=== PATIENT | male | born 1970 | race Caucasian/White ===

== ENCOUNTER 2017-10-16 18:25 | Emergency (ER) | payer MEDICAID, SELFPAY ==
[2017-10-16 18:26] VITALS: BP 147/100; PULSE 84; RESP 16; TEMP 37.1; O2SAT 98; BMI 21.6
--- NOTE | 2017-10-16 18:57 | US_ITS ---
STUDY: ABDOMINAL ULTRASOUND - RIGHT UPPER QUADRANT REASON FOR VISIT: Male, 47 years old. Right upper quadrant pain TECHNIQUE: Ultrasound evaluation of the right upper quadrant was performed with real-time and static scott-scale imaging. TECHNICAL QUALITY: Adequate. COMPARISON: None. FINDINGS: Liver: The liver measures 16.3 cm. There is normal echogenicity of the liver. The bile ducts are within normal limits. There is hepatic color flow. The direction of portal flow is hepatopetal. There is no demonstrated mass lesion. Gallbladder: Normal distended gallbladder. The gallbladder wall measures 2 mm. There is a negative sonographic Nino's sign. There is no pericholecystic fluid. There are no gallstones. Common Bile Duct (C.B.D.): The common bile duct measures 2 mm. Pancreas: Normal size of the head, body and tail of the pancreas. There is normal echogenicity of the pancreas. There is no demonstrated pancreatic mass or cyst. Right Kidney: Normal size of the right kidney. The right kidney measures 11.8 cm. Normal renal cortex. The right cortex measures 1.8 cm. There is no demonstrated renal mass or cyst. There is no right hydronephrosis. US/Gallbladder IMPRESSION: Normal right upper quadrant ultrasound examination. Electronically Signed: Tong Rivera DO at 20:50 EDT Tel , Service support ,
--- NOTE | 2017-10-16 18:57 | ED.VISSUMM ---
- ER Visit Summary Date of Service: 10/16/17 Chief Complaint: Right upper quadrant abdominal pain History of Present Illness: The patient is a 47 M presenting with right upper quadrant abdominal pain. Patient states he has intermittent symptoms. He states he has had on and off pain for the past several years. He denies any change with eating. He states over the past day it has worsened. He has had subjective fever at home. He denies nausea or vomiting. He does have diarrhea. Denies urinary complaints. He has been seen by a surgeon in the past who offered to take his gallbladder out. He was told by the surgeon that he was unsure if this would resolve his pain. He decided not to have the surgery at that time. He took ibuprofen prior to arrival. Physical Examination: Vitals are stable. Patient is afebrile. Alert no acute distress. HEENT exam is unremarkable. Neck is supple. Lungs are clear and equal bilaterally. Heart is regular rate and rhythm. Abdomen is soft right upper quadrant tenderness with no rebound or guarding. Extremities are unremarkable. Skin is warm and dry. No focal neurologic deficit. Remainder of exam is unremarkable. Emergency Department Course and Treatment: Patient is given morphine, Zofran, IV fluids with improvement. CBC, chemistries unremarkable. Liver lipase are normal. Ultrasound of the right upper quadrant is normal. Patient is resting comfortably in the ED. He is given a prescription for Bentyl and Zofran. Advised to follow-up with Dr. Li and Dr. Rodríguez environmental epidemiologist for no doc. Advised return to ED for worsening complaints. Disposition: Discharge home Impression: Acute on chronic abdominal pain This note was generated with [employer] dictation software. It may contain incorrect words, spelling, and punctuation that were not noted in review of the chart prior to signing ED Disposition - Plan for ED Patient: Chief Complaint: Abd Pain Referrals: NOT,DEFINED [NON-STAFF] -
[2017-10-16] MEDS: 0.9% Normal Saline 1,000 ML 1000 ML IV (19:07)
[2017-10-16] MEDS: Morphine 4 MG/ML Syringe IV (19:07)
[2017-10-16] MEDS: Ondansetron 4 MG/2 ML Vial IV (19:07)
[2017-10-16 19:26] LABS: Absolute Lymphocyte Count 1.95 X10^3/ul (0.83-4.51); Absolute Neutrophil Count 2.8 X10^3/uL (2.0-7.7); Basophil# 0.02 X10^3/uL; Basophil% 0.4 % (0-1); Eosinophil# 0.16 X10^3/uL; Eosinophils% 2.8 % (0-5); Hematocrit 45.7 % (40-54); Hemoglobin 15.7 g/dl (13.0-16.5); Lymphocyte # 1.95 X10^3/ul (4.0); Lymphocyte % 34.7 % (19-41); Mean Corp Hgb Conc 34.4 g/gl (32-36); Mean Corpuscular Volume 84.5 fL (80-94); Mean Platelet Vol. 10.6 fl (6.2-12.0); Monocyte# 0.68 X10^3/uL; Monocyte% 12.1 % (0-10); Neutrophil # 2.81 X10^3/uL (2.7-7.7); POSITIVE COUNT NO; POSITIVE DIFFERENTIAL NO; POSITIVE MORPHOLOGY NO; Platelet Count 237 K/mm3 (150-450); RBC Distribution Width CV 13.4 % (11.6-14.6); RBC Distribution Width SD 41.1 fl (35.1-43.9); Red Blood Count 5.41 M/mm3 (4.6-6.2); White Blood Count 5.6 K/mm3 (4.4-11.0)
[2017-10-16 19:41] LABS: AST(SGOT) 14 U/L (15-37); Alanine Aminotransfer ALT/SGPT 17 U/L (16-61); Albumin, Serum 3.9 g/dL (3.2-5.0); Alkaline Phosphatase 81 U/L (45-117); Anion Gap 6 (5-15); BUN 16 mg/dL (7-18); BUN/Creat Ratio 14.5 RATIO (10-20); Bilirubin, Direct 0.08 mg/dL (0.00-0.30); Calcium,Total 8.6 mg/dL (8.5-10.1); Chloride 109 mmol/L (98-107); EST Glomerular Filtration Rate 77 mL/min (>60); Est Glom Filt Rate - Afr Amer 93 mL/min (>60); Estimated Creatinine Clearance 84.32 ml/min; Globulin 3.6 g/dL (2.2-4.2); Glucose 87 mg/dL (74-106); Lipase 298 U/L (73-393); Potassium 3.9 mmol/L (3.5-5.1); Protein, Total 7.5 g/dL (6.4-8.2); Sodium Level 142 mmol/L (136-145)
--- NOTE | 2017-10-16 21:08 | ED.DEP ---
ED Disposition - Plan for ED Patient: Chief Complaint: Abd Pain Instructions: ED Abdominal Pain Unkn Cause Prescriptions: Ondansetron [Zofran Odt] 4 mg PO Q8H PRN PRN #10 tablet PRN Reason: Nausea Dicyclomine HCl [Bentyl] 20 mg PO TIDAC #20 capsule Referrals: NOT,DEFINED [NON-STAFF] - Yariel Li MD [STAFF PHYSICIAN] - Alberto Rodríguez MD [STAFF PHYSICIAN] -
[2017-10-16 21:15] VITALS: BP 120/92; PULSE 67; RESP 16; O2SAT 96
== END 2017-10-16 21:15 | disposition home or self-care (01) ==
PROVIDERS: Emergency Provider Emergency Medicine
DX: G89.29 Other chronic pain (principal); R10.9 Unspecified abdominal pain; R19.7 Diarrhea, unspecified; Z72.0 Tobacco use
CPT/HCPCS: 76705; 80048; 80076; 83690; 85025; 96361; 96374; 96375; 99283; J2405

== ENCOUNTER 2019-03-14 08:16 | Emergency (ER) | payer MEDICAID, SELFPAY ==
[2019-03-14 08:17] VITALS: BP 148/97; PULSE 61; RESP 16; TEMP 36.1; O2SAT 100; BMI 23.0
--- NOTE | 2019-03-14 08:25 | ED.VISSUMM ---
- ER Visit Summary Date of Service: 03/14/19 Chief Complaint: Left-sided rib pain History of Present Illness: The patient is a 49 M who has pain on the ribs on the left side. Started 2 days ago. He denies any specific injury. His symptoms are worse with coughing and with breathing. He states that this is the third time this year he has had similar symptoms to this. He feels like he pulled something in his chest. The pain is sharp. He took nothing for this at home. Denies any fevers. Physical Examination: Vital signs reviewed. HEENT exam unremarkable. Heart is regular rate and rhythm without murmurs. Lungs are clear to auscultation. His chest is tender in the left fifth and sixth rib area. Abdomen is soft and nontender. Extremities reveal no edema. Peripheral pulses are equal. Skin exam normal. Neurologic exam normal. Test Results: Two-view chest x-ray per my interpretation along with the radiologist is chronic changes with hyperinflation. No bony changes Emergency Department Course and Treatment: Patient was treated with naproxen here and at home. This is either pleurisy or a chest wall strain. Both are treated with NSAIDs, ice and rest. We will follow-up with his PCP Treatment Plan: [] Disposition: Discharge Impression: Left chest wall pain This note was generated with [employer] dictation software. It may contain incorrect words, spelling, and punctuation that were not noted in review of the chart prior to signing ED Disposition - Plan for ED Patient: Referrals: NOT,DEFINED [Primary Care Provider] -
[2019-03-14] MEDS: Naproxen 500 MG Tablet PO (08:31)
--- NOTE | 2019-03-14 08:40 | RAD_ITS ---
STUDY: X-RAY CHEST REASON FOR EXAM: Male, 49 years old. Chest pain. TECHNIQUE: PA and lateral views of the chest. COMPARISON: None. FINDINGS: Hyperinflation. The lungs are clear. Scattered calcified granulomas. There is no demonstrated pleural abnormality. Normal size heart. Normal mediastinum and lesa. Normal visualized pulmonary arteries. Normal visualized aortic arch and descending thoracic aorta. Normal visualized thoracic spine. Normal visualized ribs, clavicles, and shoulders. Pectus excavatum deformity. There is no demonstrated abnormality of the visualized soft tissue structures of the upper abdomen. RAD/Chest PA and Lateral IMPRESSION: Hyperinflation. The lungs are clear. Electronically Signed: Bin Quinones, at 8:55 EDT , Service support ,
--- NOTE | 2019-03-14 09:01 | ED.DEP ---
ED Disposition - Plan for ED Patient: Disposition: Home or Assisted Living Instructions: Chest Wall Strain Prescriptions: Naproxen [Naprosyn] 500 mg PO BID PRN #20 tab Prescription Printed Referrals: NOT,DEFINED [Primary Care Provider] -
[2019-03-14 09:12] VITALS: RESP 16
== END 2019-03-14 09:12 | disposition home or self-care (01) ==
PROVIDERS: Emergency Provider Emergency Medicine
DX: R07.89 Other chest pain (principal); Z72.0 Tobacco use
CPT/HCPCS: 71046; 99283

== ENCOUNTER → 2022-03-23 | Outpatient (CLI) | payer MEDICAID, SELFPAY ==
--- NOTE | 2022-03-23 16:01 | RAD_ITS ---
STUDY: X-RAY CHEST REASON FOR EXAM: Male, 52 years old. POSITIVE TB TECHNIQUE: PA and lateral views of the chest. COMPARISON: Comparison is made with prior study 03/14/2019. FINDINGS: Pectus excavatum deformity. Hyperinflation. The lungs are clear. Calcified granulomas. There is no demonstrated pleural abnormality. Normal size heart. Normal mediastinum and lesa. Normal visualized pulmonary arteries. Normal visualized aortic arch and descending thoracic aorta. Normal visualized thoracic spine. Normal visualized ribs, clavicles, and shoulders. There is no demonstrated abnormality of the visualized soft tissue structures of the upper abdomen. RAD/Chest PA and Lateral IMPRESSION: Hyperinflation. The lungs are clear. No acute abnormality is seen. Electronically Signed: Bin Quinones MD at 13:37 EDT ,
== END | disposition home or self-care (01) ==
LOC: RAD 15:57
DX: R76.12 Nonspecific reaction to cell mediated immunity measurement of gamma interferon antigen response without active tuberculosis (principal)
CPT/HCPCS: 71046

== ENCOUNTER → 2022-06-13 | Outpatient (CLI) | payer MEDICAID, SELFPAY ==
--- NOTE | 2022-06-13 16:35 | PFTCOMP ---
COMPLETE PULMONARY FUNCTION TEST INTERPRETATION Brief HPI: Patient is a 52-year-old male, currently under the care of Alicia Baron, who presents to [facility] for complete pulmonary function tests secondary to diagnosis of dyspnea. Respiratory therapist reports good effort and reproducible results. Interpretation: Forced expiration spirometry shows no large airways obstructive ventilatory defect with an FEV1 of 84% predicted. There is no significant bronchodilator response by strict ATS criteria. Spirograms are of good quality and plateau slowly, indicating slowly emptying areas of the lungs. The respiratory flow volume loop shows decreased expiratory flow rates at high lung volumes consistent with small airways obstruction. Lung volumes by body plethysmography show a normal total lung capacity at 6.66 L, 94% predicted. All other lung volumes are within normal limits. Diffusion capacity by carbon monoxide is elevated at 140% predicted. The airway resistance is slightly elevated. No previous pulmonary function tests were available for review. Impression: Grossly normal pulmonary function test. Consider bronchoprovocation study if asthma is suspected
== END | disposition home or self-care (01) ==
LOC: PSN 09:53
DX: R06.02 Shortness of breath (principal)
CPT/HCPCS: 94060; 94726; 94729

== ENCOUNTER → 2022-06-17 | Outpatient (CLI) | payer MEDICAID, SELFPAY ==
--- NOTE | 2022-06-17 09:28 | CT_ITS ---
EXAM: CT CHEST WITHOUT INTRAVENOUS CONTRAST CLINICAL INDICATION: LUNG NODULE TECHNIQUE: Helically acquired images were obtained of the chest without intravenous contrast. This CT exam was performed using one or more of the following dose reduction techniques: automated exposure control, adjustment of the mA and/or kV according to patient size, and/or use of iterative reconstruction technique. This report was created using [employer] report generation technology. RADIATION DOSE: CTDIvol = 11.33 mGy, DLP = 435.92 mGy-cm COMPARISON: CT abdomen and pelvis without contrast 02/03/2017. No prior CT chest for comparison. FINDINGS: LUNGS AND PLEURAL SPACES: Calcified granuloma in the anterior aspect of both lower lobes. No suspicious pulmonary nodules or infiltrates. Minimal subpleural atelectasis in the right anterior lung base. No pneumothorax. HEART: Unremarkable. Heart size is normal. No pericardial effusion. No significant coronary artery calcifications. MEDIASTINUM: Unremarkable. No mediastinal or hilar adenopathy. Esophagus is unremarkable. No hiatal hernia. THYROID: Unremarkable. No thyroid lesions. BONES/JOINTS: Unremarkable. No suspicious lytic or blastic abnormality. VASCULATURE: Unremarkable. Thoracic aorta is non-dilated. CT/Chest without Contrast IMPRESSION: 1. No acute findings in the chest. 2. No CT evidence of pulmonary nodule. 3. Subpleural atelectasis in the right anterior lung base. Electronically Signed: Alex Bruner MD at 10:11 [facility] ,
== END | disposition home or self-care (01) ==
LOC: CT 09:26
DX: R91.1 Solitary pulmonary nodule (principal)
CPT/HCPCS: 71250

== ENCOUNTER 2022-08-21 17:51 | Emergency (ER) | payer MEDICAID, SELFPAY ==
[2022-08-21 17:53] VITALS: BP 150/100; PULSE 80; RESP 14; TEMP 36.1; O2SAT 96; BMI 24.9
--- NOTE | 2022-08-21 17:58 | ED.RN ---
SPOKE WITH DR HOLDER ABOUT PT SX, NO ORDERS GIVEN D/T SX STARTING IN MAR.
--- NOTE | 2022-08-21 20:16 | CT_ITS ---
INDICATION: Blurred vision of left eye EXAMINATION: CT BRAIN WITH CONTRAST TECHNIQUE: Noncontrast axial images were obtained of the brain. Subsequently, routine carotid CT angiogram protocol was performed without and with IV contrast. In addition, images were obtained of the [place]. NASCET criteria using the distal ICAs for comparison were used for evaluation of stenoses. 3D reconstructions were reviewed. A radiation dose optimization technique was used for this scan. IV Contrast dosage and agent: 100 cc [id number]-[id number] COMPARISON: None. FINDINGS: --CT BRAIN: BRAIN PARENCHYMA: No intra- or extra-axial hemorrhage. No evidence of acute infarct. No intracranial mass or mass effect. There is preservation of the scott/white matter interface. Posterior fossa structures are unremarkable. CSF SPACES: Appropriate for age. No hydrocephalus. Basal cisterns are patent. CALVARIUM, SKULL BASE, PARANASAL SINUSES AND MASTOID AIR CELLS: Clear. No discrete lytic or blastic abnormalities. ASPECTS Score for Acute Strokes: 10 --CTA NECK: AORTIC ARCH AND BRANCHES: Common origin of the innominate and left common carotid arteries. RIGHT CCA: No occlusion, significant stenosis or dissection. RIGHT ICA: No occlusion, significant stenosis or dissection. LEFT CCA: No occlusion, significant stenosis or dissection. LEFT ICA: No occlusion, significant stenosis or dissection. RIGHT VERTEBRAL ARTERY: No occlusion, significant stenosis or dissection. LEFT VERTEBRAL ARTERY: No occlusion, significant stenosis or dissection. NECK SOFT TISSUES: Unremarkable. --CTA HEAD: --Anterior circulation: ICAs: No significant stenosis at the intracranial/visualized segments. ACAs: No significant stenosis at the visualized segments. ACOM: Present. MCAs: No significant stenosis at the visualized segments. --Posterior circulation: PCOMs: Present on the left, not definitely seen on the right. sales broker: No significant stenosis at the visualized segments. BASILAR ARTERY: No significant stenosis. VERTEBRAL ARTERIES: No significant stenosis at the intradural/visualized segments. No evidence of intracranial aneurysm or vascular malformation. CT/CTA Head AND Neck W/ Contrast IMPRESSION: Negative CT Brain, CTA Carotid, and CTA Brain. Electronically Signed: Alberto Chanel MD at 21:30 EST ,
--- NOTE | 2022-08-21 20:18 | EX.ED.VIS.EY ---
HPI History of Present Illness Chief Complaint: Eye Problem Narrative Narrative: 52-year-old male past medical history of schizophrenia and hepatitis C states he has been having neurological type symptoms with left-sided facial numbness since March of last year, almost 6 months ago. He states he was seen at [facility] and they thought that given his left facial numbness that he was having problems with his heart so they performed a heart catheterization. He was told approximately a month ago at [facility] that he has degenerative problems with his neck, and that part of his numbness may be from cervical radiculopathy/disc disease. He presents to the emergency department today because of blurry vision in his left eye. Its not as if lampshade came down and that he has loss of vision but he states it is like it shaded with a filter over it. He denies any headache. No chest pain or shortness of breath. States he is scheduled for an MRI of his neck next week, but today he noticed this blurry vision out of his left eye that is accompanying his facial numbness. He thinks his left face is also swollen. PFSH PFS Home Medications naproxen 500 mg tablet 500 mg PO BID PRN #20 tabs 03/14/19 [Rx Last Taken Unknown] Allergy/AdvReac Type Severity Reaction Status Date / Time tramadol AdvReac Vomiting Verified 03/14/19 08:17 Social History Smoking Status: Current every day smoker tobacco type: cigarettes ROS ROS ED ROS Narrative Constitutional: No fever, no chills. HEENT: No sore throat. No neck pain. No loss of vision. No rhinorrhea. Blurred vision out of left eye only. States it is like a filter over it, but can still see. Cardiovascular: No chest pain. No palpitations. No pedal edema. Respiratory: No cough, no shortness of breath. Abdominal: No abdominal pain. No nausea. No vomiting. Genitourinary: No dysuria. No hematuria. Musculoskeletal: No myalgias. No arthralgias. Neurologic: No headaches. No dizziness. No lightheadedness. Skin: No rash. No change in color. Psychiatric: No depression. No anxiety. EXAM Physical Exam Narrative Exam Narrative: Afebrile. Vital signs noted. HEENT: Normocephalic. Atraumatic. PERRL, EOMI. Neck soft and supple. No point tenderness or step off. Cardiovascular: Regular rate and rhythm. No murmurs, rubs, or gallops appreciated. Respiratory: No tachypnea. Lungs clear to auscultation bilaterally. Gastrointestinal: Abdomen soft, nontender, with normoactive bowel sounds. No rebound or guarding. Neurological: Awake. Alert. Nonfocal, nonlateralizing. Skin: No rash. Normal color. No pallor. Musculoskeletal: No pedal edema. Full range of motion extremities. Const Vital Signs: 08/21/22 17:53 Temperature 97 F L Temperature Source Temporal Pulse Rate 80 Respiratory Rate 14 Blood Pressure 150/100 H Blood Pressure Mean 116 Pulse Ox 96 Oxygen Delivery Method Room Air MDM MDM MDM Narrative Medical decision making narrative: His symptoms neurologically have been ongoing for almost 6 months. What he is describing is not a lampshade effect or curtain lowering type symptom consistent with amaurosis fugax. Visual acuity will be obtained. He was told that MRI is unavailable at this facility at this hour, I do not feel that he needs an emergent MRI of his brain as he has had the symptoms ongoing for quite some time. Instead, I will obtain a CTA of the head and neck. CBC and BMP were also obtained. He was bolused normal saline 1 L intravenously. I reviewed the patient's laboratory work. CBC is grossly unremarkable with a normal white count, normal hemoglobin. BMP is grossly unremarkable without electrolyte abnormality disturbance. I reviewed the CT a of the head neck, and did not appreciate any hemorrhage or obvious occlusion. I reviewed the radiology report which is negative for any obstruction, normal CTA of the head and neck. At this point in time, he is able to see out of his left eye and there is no appreciable facial swelling. Additionally he is able to finger count, he states he is still able to see but it is as if someone put a filter over his left eye field of vision. He has normal confrontation and no evidence of hemianopsia. At this point in time, I discussed the patient with Dr. Encinas with ophthalmology. It was agreed that he could follow-up as an outpatient in the clinic for further testing. I feel he can be discharged safely home with follow-up. Return instructions to the emergency department were reviewed. Disposition is discharged home in stable condition. Lab Data Attestation: I reviewed the patient's lab results. Discharge Plan Triage Chief Complaint: Eye Problem ED Provider: Alex Hoffman Dx/Rx/DC Orders Clinical Impression: Blurred vision, left eye, Visual disturbance Instructions: ED Blurred Vision Prescriptions: No Action naproxen 500 MG tablet 500 mg PO BID PRN Qty: 20 0RF Primary Care Provider: Michelle Christina NP Referrals: ADWOA HUTCHINSON [Other] Daria Encinas MD [Med Staff - Active Staff] - 3-5 Days Activity Restrictions/Additional Instructions: Follow-up with Dr. Encinas in the eye clinic over the next few days. Return with loss of vision, new or worsening symptoms. Disposition Disposition: Home, Self Care
[2022-08-21 20:36] LABS: Absolute Lymphocyte Count 2.48 X10^3/uL (0.83-4.51); Absolute Neutrophil Count 5.2 X10^3/uL (2.0-7.7); Basophil# 0.05 X10^3/uL; Basophil% 0.6 % (0-1); Eosinophil# 0.12 X10^3/uL; Eosinophils% 1.4 % (0-5); Hemoglobin 14.9 g/dL (13.0-16.5); Lymphocyte # 2.48 X10^3/ul (0.83-4.51); Lymphocyte % 29.1 % (19-41); Mean Corp Hgb Conc 33.1 g/dL (32-36); Mean Corpuscular Hgb 28.3 pg (27.0-32.0); Mean Corpuscular Volume 85.4 fL (80-94); Mean Platelet Vol. 9.6 fl (6.2-12.0); NRBC Flagged by Analyzer 0 % (0-5); Neutrophil # 5.22 X10^3/uL (2.7-7.7); Neutrophil % 61.2 % (47-70); Platelet Count 297 K/mm3 (150-450); RBC Distribution Width CV 12.4 % (11.6-14.6); RBC Distribution Width SD 38.5 fl (35.1-43.9); Red Blood Count 5.27 M/mm3 (4.6-6.2); White Blood Count 8.5 K/mm3 (4.4-11.0)
[2022-08-21] MEDS: 0.9% Normal Saline 1,000 ML 999 ML IV (20:37)
[2022-08-21 20:50] LABS: Anion Gap 7 (5-15); BUN 17 mg/dL (7-18); BUN/Creat Ratio 14.5 RATIO (10-20); Calcium,Total 9.4 mg/dL (8.5-10.1); Chloride 107 mmol/L (98-107); Creatinine, Serum 1.17 mg/dL (0.70-1.30); EST Glomerular Filtration Rate 70 mL/min (>60); Est Glom Filt Rate - Afr Amer 85 mL/min (>60); Estimated Creatinine Clearance 77.99 ml/min; Glucose 104 mg/dL (74-106); Potassium 3.7 mmol/L (3.5-5.1); Sodium Level 141 mmol/L (136-145)
[2022-08-21 21:55] VITALS: BP 135/95; PULSE 74; RESP 13; O2SAT 99
== END 2022-08-21 21:58 | disposition home or self-care (01) ==
PROVIDERS: Emergency Provider Emergency Medicine; PCP Internal Medicine; Visit Provider Emergency Medicine
DX: H53.8 Other visual disturbances (principal); R20.0 Anesthesia of skin; F17.210 Nicotine dependence, cigarettes, uncomplicated; Z86.19 Personal history of other infectious and parasitic diseases
CPT/HCPCS: 70496; 70498; 80048; 85025; 99285; J7030; Q9967; A4216

== ENCOUNTER 2022-11-29 08:25 | Emergency (ER) | payer MEDICAID, SELFPAY ==
[2022-11-29 08:27] VITALS: BP 144/84; PULSE 78; RESP 18; TEMP 36.3; O2SAT 99; BMI 24.8
--- NOTE | 2022-11-29 08:59 | RAD_ITS ---
INDICATION: shoulder EXAMINATION/TECHNIQUE: X-RAY - LEFT XR Shoulder Min 2 Views 4 VIEWS COMPARISON: CT of the chest dated June 17, 2022 FINDINGS: SOFT TISSUES: No soft tissue swelling or gas. No radiopaque foreign body. BONES/JOINTS: No acute fracture or subluxation.. Normal alignment. There are degenerative changes of the acromioclavicular joint. There are mild degenerative changes of the glenohumeral joint as well. There is a stable left fifth rib deformity consistent with an old fracture. No sclerotic or destructive changes observed. RAD/Shoulder min 2 Views IMPRESSION: Degenerative changes. Electronically Signed: Karen Vaca MD at 9:13 EDT ,
--- NOTE | 2022-11-29 08:59 | EX.ED.UPPERE ---
HPI History of Present Illness HPI Narrative: Left shoulder pain after lifting and moving a heavy ladder. 2-day history. No fall or trauma. [id number]. No prior surgery or history to the left shoulder or arm. Chief Complaint: Upper Extremity Injury Informant: patient Occured/Mechanism Mechanism/Context: Yes injury Onset/Context/Timing Onset: Days Context: Gradual Onset Timing: Continuous Quality of Pain: Dull and Aching Current Severity: Mild Maximum Severity: Mild Associated Symptoms Associated Symptoms: Negative for Parasthesia, Weakness or Loss of Funtion Narrative Narrative: 52-year-old male [id number] was moving 20 foot ladder 2 days ago and since that time has had pain in his left shoulder. No fall injury or trauma. Hurts more with specific movements. Has full range of motion. No prior history of surgery. Prior similar symptoms: No Recent Illness/Hospitalization: No PFSH PFSH Home Medications naproxen 500 mg tablet 500 mg PO BID PRN #20 tabs 03/14/19 [Rx Last Taken Unknown] Allergy/AdvReac Type Severity Reaction Status Date / Time tramadol AdvReac Vomiting Verified 11/29/22 08:25 Social History Smoking Status: Current every day smoker tobacco type: cigarettes ROS ROS ED ROS Narrative Denies recent illness. Review of Systems ROS Unobtainable: Denies due to encephalopathy Constitutional Constitutional ED: Denies chills or fever(s) Eyes Eyes: Denies blurry vision ENT ENT ED: Denies ear pain Cardiovascular Cardiovascular: Denies chest pain Respiratory/Chest Respiratory/Chest: Denies cough Gastrointestinal Gastrointestinal: Denies abdominal pain Genitourinary Genitourinary ED: Denies dysuria Musculoskeletal Musculoskeletal: Denies back pain Integumentary Denies abscess Neurologic Neurologic: Denies headache(s) Psychiatric Psychiatric: Denies anxiety Endocrine Endocrinology: Denies cold intolerance Hematologic/Lymphatic Hematologic/Lymphatic: Denies easy bleeding Allergic/Immunologic Allergic/Immunologic ED: Denies mouth swelling or tongue swelling EXAM Physical Exam Narrative Exam Narrative: 52-year-old male vital signs are stable afebrile. No distress. Exam normal except left shoulder has full range of motion. Some discomfort with ABD duction. No redness or warmth. No axillary lymphadenopathy. The only place that is palpable tenderness is along the anterior top of his shoulder by the AC joint. No bony deformity. No swelling. He has full flexion extension AB and adduction. Internal and external rotation. He does have some discomfort with abduction. Const Vital Signs: 11/29/22 08:27 Temperature 97.4 F L Temperature Source Temporal Pulse Rate 78 Respiratory Rate 18 Blood Pressure 144/84 H Blood Pressure Mean 104 Pulse Ox 99 Oxygen Delivery Method Room Air Positive well nourished and well developed; Negative for obese, cachectic, contractures or unkempt General Appearance ED: well developed and NAD; Negative for unkempt, cachectic, contractures, cyanotic or diaphoretic Nutritional Appearance: Negative for cachectic or obese HEENT Reports moist mucous membranes normocephalic and atraumatic; Negative for trauma or tenderness Eyes PERRL and EOMs intact bilaterally General Eye ED: Negative for other Neck full ROM and supple General: Negative for tenderness Lymph Lymphatic: Negative for other Chest Wall inspection of chest normal and palpation of chest normal Chest: Negative for other Resp normal respiratory effort and clear to auscultation bilaterally Effort and Inspection: Negative for pain with movement Auscultation: Negative for rales, rhonchi or wheezes Cardio regular rate, regular rhythm, S1 normal heart sound, S2 normal heart sound and no murmurs Rate: Negative for bradycardia or tachycardic Rhythm: Negative for abnormal rhythm GI non-tender, non-distended and no masses Inspection: Negative for abdominal distention Auscultation: normoactive bowel sounds Palpation: soft; Negative for tender or guarding Back/Spine no CVA tenderness General Back: Negative for CVA tenderness Cervical Spine: Negative for cervical spine tenderness Thoracic Spine / Upper Back: Negative for thoracic spinal tenderness Lumbar Spine / Lower Back: Negative for lumbar spinal tenderness Extremity normal to inspection and full ROM Extremity Narrative: Mild tenderness top of left shoulder. Full range of motion. No swelling or deformity. No redness or warmth. No axillary lymphadenopathy. Left hand neurovascular intact. Normal pulse. 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 Normal exam of left upper extremity Mild tenderness and pain with certain areas of range of motion. Good rotator cuff strength. General Extremety ED: Negative for edema General Extremity: Negative for edema Neuro oriented x3, CN's II-XII intact bilaterally, moves all extremities, no focal motor deficits and no sensory deficits noted Sensorium / Orientation: alert, oriented to person, oriented to place and oriented to time; Negative for orientation impaired, lethargic or stuporous Motor Exam: strength 5/5 throughout Psych mental status grossly normal Appearance: Negative for unkempt Attitude: No agitated Mood & Affect: Negative for depressed, anxious or tearful Skin General Skin Exam: Negative for petechiae Lesions: no lesions Rashes: no rashes Trauma: no lacerations or abrasions MDM MDM MDM Narrative Medical decision making narrative: 52-year-old male left shoulder discomfort with certain aspects of range of motion primarily abduction. He has full range of motion. No bony deformity. I suspect this is a shoulder strain. X-rays are being obtained. Patient doing well at 9:25 AM. He will be discharged. We discussed home-going instructions of ice, anti-inflammatories and rest. Follow-up if not improving in 1 to 2 weeks. History & Record Review Discussion w/independent historian: Patient and Family Radiography Diagnostic Testing: Left shoulder x-ray showed no acute abnormality. No fracture. No dislocation. I discussed the x-rays with patient and his . Also limitations of plain films. I did interpret the films myself. Discharge Plan Triage Chief Complaint: Upper Extremity Injury ED Provider: Rory Ribeiro Dx/Rx/DC Orders Clinical Impression: Left shoulder strain Instructions: ED Shoulder Sprain Prescriptions: No Action naproxen 500 MG tablet 500 mg PO BID PRN Qty: 20 0RF Primary Care Provider: Michelle Christina NP Referrals: Michelle Christina NP, [facility] [Primary Care Provider] - 10-14 Days suture removal Activity Restrictions/Additional Instructions: Ice, rest and ibuprofen and Tylenol for your shoulder pain. I think you strained it. This should knock down inflammation. No lifting greater than 10 pounds until pain-free for several days. Follow-up with your primary care provider if not improving. If not improving we may need to go to a higher level of imaging such as an MRI but you absolutely do not need that at this time. Disposition Disposition: Home, Self Care
== END 2022-11-29 09:43 | disposition home or self-care (01) ==
PROVIDERS: Emergency Provider Emergency Medicine; PCP Internal Medicine; Visit Provider Emergency Medicine
DX: S46.912A Strain of unspecified muscle, fascia and tendon at shoulder and upper arm level, left arm, initial encounter (principal); F17.210 Nicotine dependence, cigarettes, uncomplicated; X58.XXXA Exposure to other specified factors, initial encounter
CPT/HCPCS: 73030; 99282